=== PATIENT | female | born 1985 | race African-American/Black ===

== ENCOUNTER 2018-06-03 23:09 | Emergency (ER) | payer MEDICAID ==
[2018-06-03 23:44] LABS: ABSOLUTE EOSINOPHILS # (AUTO) 0.1 10^3/uL (0.0-0.6); ABSOLUTE LYMPHOCYTES (AUTO) 2.1 10^3/uL (0.5-4.7); ABSOLUTE MONOCYTES (AUTO) 0.7 10^3/uL (0.1-1.4); ABSOLUTE NEUT (AUTO) 6.7 10^3/uL (1.7-8.2); BASOPHILS % (AUTO) 0.3 % (0-2); EOSINOPHILS % (AUTO) 0.6 % (0-6); HEMATOCRIT 33.4 % (36.0-47.0); HEMOGLOBIN 11.1 g/dL (12.0-15.5); LYMPHOCYTES % (AUTO) 22.4 % (13-45); MEAN CORPUSCULAR HEMOGLOBIN 26.1 pg (27.0-33.4); MEAN CORPUSCULAR HGB CONC 33.2 g/dL (32.0-36.0); MEAN CORPUSCULAR VOLUME 79 fl (80-97); PLATELET COUNT 525 10^3/uL (150-450); RED BLOOD COUNT 4.24 10^6/uL (3.72-5.28); SEGMENTED NEUTROPHILS % (AUTO) 69.7 % (42-78); TOTAL CELLS COUNTED % (AUTO) 100 %; WHITE BLOOD COUNT 9.6 10^3/uL (4.0-10.5)
[2018-06-03 23:54] LABS: ALANINE AMINOTRANSFERASE 20 U/L (9-52); ALBUMIN 4.4 g/dL (3.5-5.0); ALKALINE PHOSPHATASE 67 U/L (38-126); ANION GAP 11 (5-19); ASPARTATE AMINO TRANSFERASE 20 U/L (14-36); BILIRUBIN,DIRECT 0.1 mg/dL (0.0-0.4); BILIRUBIN,TOTAL 0.2 mg/dL (0.2-1.3); BLOOD UREA NITROGEN 12 mg/dL (7-20); CALCIUM 9.8 mg/dL (8.4-10.2); CARBON DIOXIDE 27 mmol/L (22-30); CHLORIDE 102 mmol/L (98-107); GLUCOSE 144 mg/dL (75-110); POTASSIUM 3.6 mmol/L (3.6-5.0); SODIUM 140.2 mmol/L (137-145); TOTAL PROTEIN 7.5 g/dL (6.3-8.2)
[2018-06-04] MEDS ORDERED: ASPIRIN 81 MG TABLET, CHEWABLE PO ONE (00:06)
--- NOTE | 2018-06-04 00:11 | ER Document Report ---
ED General - General Chief Complaint: Chest Pain Stated Complaint: CHEST PAIN Time Seen by Provider: 06/04/18 00:05 Primary Care Provider: CORY COX NP [Primary Care Provider] - Follow up as needed Mode of Arrival: Ambulatory Information source: Patient TRAVEL OUTSIDE OF THE [place] IN LAST 30 DAYS: No - HPI Patient complains to provider of: Chest pain, shortness of breath Onset: Other - Around 9:00 this evening Quality of pain: Other - "TUGGIN" Severity: Mild Context: Laying down Associated symptoms: denies: Chills, Fever Exacerbated by: Denies Relieved by: Denies Similar symptoms previously: No Recently seen / treated by doctor: No Notes: 32-year-old -Serbian female coming in today with chief complaint left- sided chest pain which feels like a tugging sensation and some shortness of breath. Symptoms came on while she was laying down to go to bed. Patient has a history of hypertension. She does not smoke. No history of cholesterol or diabetes. No significant family cardiac history. She denies drug use. Patient denies reactive airway disease. - Related Data Allergies/Adverse Reactions: No Known Allergies Allergy (Verified 01/22/12 13:29) Past Medical History - General Information source: Patient - Social History Smoking Status: Never Smoker Family History: Reviewed & Not Pertinent Patient has suicidal ideation: No Patient has homicidal ideation: No - Past Medical History Cardiac Medical History: Denies: Hx Coronary Artery Disease, Hx Hypertension Pulmonary Medical History: Denies: Hx Asthma Neurological Medical History: Denies: Hx Migraine Endocrine Medical History: Denies: Hx Diabetes Mellitus Type 1, Hx Diabetes Mellitus Type 2 Renal/ Medical History: Denies: Hx Peritoneal Dialysis Past Surgical History: Reports: Hx Section - Immunizations Hx Diphtheria, Pertussis, Tetanus Vaccination: Yes Review of Systems - Review of Systems Notes: Constitutional: No fevers. No chills. EENT: No eye redness. No eye pain. No ear pain. No sore throat. Cardiovascular: + chest pain. No palpitations. Respiratory: No cough. + Shortness of breath. No respiratory distress. Gastrointestinal: No abdominal pain. No nausea, vomiting, or diarrhea. Genitourinary: Atraumatic. No lesions. No pain. No discharge. Musculoskeletal: Atraumatic. No swelling. No deformities. Skin: No rash or lesions. Lymphatic: No swollen lymph nodes. Neurologic: No headache. No syncope. Psychiatric: No suicidal or homicidal ideation. Physical Exam - Vital signs Vitals: Temp Pulse Resp BP Pulse Ox 97.9 F 80 16 162/92 H 97 06/03/18 23:36 06/03/18 23:36 06/03/18 23:36 06/03/18 23:36 06/03/18 23:36 - Notes Notes: General: Well-developed, well-nourished. In no acute distress. Non-toxic appearing. Cardiac: Well-perfused. Regular rate and rhythm. No murmurs, rubs, or gallops. Pulmonary: No respiratory distress. No cyanosis. Bilateral lung Perez are clear to auscultation. Abdominal: Non-distended. Non-rigid. Bowels sounds are present in all four quadrants. No guarding or rebound. HEENT: Head is atraumatic. Conjunctivae not reddened. No tearing. PERRL. EOMI. Orbits atraumatic. No periorbital swelling or erythema. Oropharynx is without erythema, swelling, or exudates. Neck: Supple. No adenopathy. No meningismus. Dermatologic: Warm with good turgor. No rash. Atraumatic. Chest: Atraumatic. No chest wall tenderness to palpation. Musculoskeletal: Moves all extremities well. No range of motion deficits. no muscular or joint tenderness. No paraspinal muscle tenderness. no midline spinal tenderness or step-off. Genitourinary: Examination deferred Neurologic: No gross neurologic deficits. Psychiatric: Normal mood. Course - Re-evaluation Re-evalutation: 06/04/18 00:10 HEART SCORE IS 1. WILL DO BASELINE WORKUP AND DISCHARGE HOME IF WORK-UP IS NEGATIVE. 06/04/18 01:13 Workup is negative. I suspect the patient may have experienced palpitations at home. At our facility there is no evidence. I suggested the patient that if these episodes of palpitations persist but it may be worth going to see a children librarian. Also suggested perhaps a Holter monitor to see if this palpitations could be further diagnosed. Will discharge home - Vital Signs Vital signs: Temp Pulse Resp BP Pulse Ox 97.9 F 80 16 162/92 H 97 06/03/18 23:36 06/03/18 23:36 06/03/18 23:36 06/03/18 23:36 06/03/18 23:36 - Laboratory Result Diagrams: 06/03/18 23:20 06/03/18 23:20 Laboratory results interpreted by me: 06/03/18 06/03/18 23:20 23:20 Hgb 11.1 L Hct 33.4 L MCV 79 L MCH 26.1 L Plt Count 525 H Glucose 144 H - Diagnostic Test Radiology reviewed: Reports reviewed - EKG Interpretation by Me EKG shows normal: Sinus rhythm Rate: Normal Rhythm: NSR Discharge - Discharge Clinical Impression: Atypical chest pain, Palpitations Condition: Good Disposition: HOME, SELF-CARE Instructions: Chest Pain of Unclear Cause ([facility]), Palpitations (Irregular or Rapid Heartrate) ([facility]) Additional Instructions: Please follow-up with your primary care doctor for this. Have also included the name of a children librarian should she decide to follow-up with them. Referrals: CORY COX NP [Primary Care Provider] - Follow up as needed BUCK MORALEZ MD [ACTIVE STAFF] - Follow up as needed
--- NOTE | 2018-06-04 01:01 | RADIOLOGY REPORT (SQ) ---
EXAM DESCRIPTION: XR CHEST 2 VIEWS COMPLETED DATE/TME: 06/04/2018 00:06 CLINICAL HISTORY: 32 years, Female, CP COMPARISON: 10/18/2010 chest x-ray NUMBER OF VIEWS: 2 TECHNIQUE: Frontal and lateral views of the chest LIMITATIONS: None. FINDINGS: The heart size is normal. Lungs are clear. No pneumothorax IMPRESSION: Negative chest copyright 2010 [employer]- All Rights Reserved
[2018-06-04 01:52] VITALS: BP 140/88
--- NOTE | 2018-06-04 13:24 | EKG REPORT ---
SEVERITY:- ABNORMAL ECG - SINUS RHYTHM NONSPECIFIC T ABNORMALITIES, INFERIOR LEADS : Confirmed by: Baron Mclaughlin MD 04-Jun-2018 13:22:52
== END 2018-06-04 01:35 | disposition home or self-care (01) ==
LOC: ER 23:09
DX: R07.89 Other chest pain (principal); R00.2 Palpitations; R06.02 Shortness of breath; I10 Essential (primary) hypertension
CPT/HCPCS: 36415; 71046; 80053; 84484; 85025; 93005; 93010; 99285